=== PATIENT | male | born 1945 | race Caucasian/White ===

== ENCOUNTER 2017-11-04 15:03 | Emergency (ER) | payer OTHER ==
[~2017-11-04] VITALS: Ht 175.3 cm; Wt 88.5 kg
[~2017-11-04 15:03] MED LIST: CYCL10 PO; IBUP800 PO; MONT10T PO; MULVITMIND PO
[2017-11-04 16:14] LABS: BASOPHILS ABSOLUTE AUTO 0.05 K/mm3 (0.00-0.23); BASOPHILS PERCENT AUTO 1 % (0-2); EOSINOPHILS ABSOLUTE AUTO 0.31 K/mm3 (0.00-0.68); EOSINOPHILS PERCENT AUTO 5 % (0-6); Hematocrit 45.5 % (37.0-53.0); IMMATURE GRAN ABSOLUTE AUTO 0.02 K/mm3 (0.00-0.10); IMMATURE GRAN PERCENT AUTO 0 % (0-1); LYMPHOCYTES PERCENT AUTO 17 % (21-46); MONOCYTES PERCENT AUTO 9 % (4-13); Mean Corpuscular HGB 30.3 pg (26.0-34.0); Mean Corpuscular Volume 92 fL (80-100); NEUTROPHILS ABSOLUTE AUTO 4.71 K/mm3 (1.96-9.15); NEUTROPHILS PERCENT AUTO 68 % (41-73); Platelet Count 205 K/mm3 (150-400); RDW Coefficient Variation 13.3 % (11.7-14.2); RDW Standard Deviation 45.7 fL (35.1-46.3); Red Blood Cell Count 4.95 M/mm3 (4.30-5.90); White Blood Cell Count 6.89 K/mm3 (4.00-11.30)
[2017-11-04 16:15] LABS: Anion Gap 9 mmol/L (6-16); Blood Urea Nitrogen 15 mg/dL (8-24); CO2, Blood 26 mmol/L (21-32); Calcium, Blood 8.9 mg/dL (8.5-10.1); Chloride, Blood 107 mmol/L (98-108); Creatinine, Blood 0.94 mg/dL (0.60-1.20); Glomerular Filtration Rate >60 (60-); Glucose, Blood 104 mg/dL (70-99); Sodium, Blood 142 mmol/L (136-145)
[2017-11-04] MEDS ORDERED: HYDR1TAB94 PO (18:24)
[2017-11-04] MEDS ORDERED: CEPH500 PO (18:24)
== END 2017-11-04 18:39 | disposition home or self-care (01) ==
LOC: ER 15:03
PROVIDERS: Emergency Medicine
DX: S62.637B Displaced fracture of distal phalanx of left little finger, initial encounter for open fracture (principal); S62.631A Displaced fracture of distal phalanx of left index finger, initial encounter for closed fracture; S62.633A Displaced fracture of distal phalanx of left middle finger, initial encounter for closed fracture; S66.52 Laceration of intrinsic muscle, fascia and tendon of other and unspecified finger at wrist and hand level; S61.215A Laceration without foreign body of left ring finger without damage to nail, initial encounter; Z23 Encounter for immunization; W29.3XXA Contact with powered garden and outdoor hand tools and machinery, initial encounter
CPT/HCPCS: 12004; 73130; 80048; 85025; 90471; 90714; 96374; 96375; 96376; 99284; J0690; J1170; J2270; L3917

== ENCOUNTER 2017-11-07 06:38 | Day surgery (SDC) | payer OTHER ==
[~2017-11-07] VITALS: Ht 175.3 cm; Wt 92.1 kg
[~2017-11-07 06:38] MED LIST changes: +CEPH500 PO; +HYDR1TAB94 PO
[2017-11-07] MEDS ORDERED: Percocet 5-3251 EACH PO (14:37)
[2017-11-07] MEDS ORDERED: CEPH500 PO (14:37)
== END 2017-11-07 15:08 | disposition home or self-care (01) ==
LOC: SURS 06:38 → ORSCMMR 06:38 → EDSTATUS 09:00 → ORSCMMR 15:08 → SURS 15:08
PROVIDERS: Orthopaedic Surgery
PROC: 0RG Upper Joints, Fusion (ICD-10-PCS; principal; 2017-11-07 09:00)
PROC: 0LQ80ZZ Repair Left Hand Tendon, Open Approach (ICD-10-PCS; principal; 2017-11-07 09:00)
PROC: 0HQGXZZ Repair Left Hand Skin, External Approach (ICD-10-PCS; 2017-11-07 09:00)
PROC: 0HQQXZZ Repair Finger Nail, External Approach (ICD-10-PCS; 2017-11-07 09:00)
DX: S68.121A Partial traumatic metacarpophalangeal amputation of left index finger, initial encounter (principal); S66.325A Laceration of extensor muscle, fascia and tendon of left ring finger at wrist and hand level, initial encounter; S61.313A Laceration without foreign body of left middle finger with damage to nail, initial encounter; S61.315A Laceration without foreign body of left ring finger with damage to nail, initial encounter; G89.29 Other chronic pain; M54.9 Dorsalgia, unspecified; Z98.890 Other specified postprocedural states; Z98.1 Arthrodesis status; Z87.891 Personal history of nicotine dependence; X58.XXXA Exposure to other specified factors, initial encounter; W27.0XXA Contact with workbench tool, initial encounter
CPT/HCPCS: G0378; J0690; J1100; J1885; J2405; J3010; J7120

== ENCOUNTER 2019-06-28 12:23 | Day surgery (SDC) | payer OTHER ==
[~2019-06-28] VITALS: Ht 175.3 cm; Wt 86.6 kg
[~2019-06-28 12:23] MED LIST changes: +Aspir 8181 MG PO; +Percocet 5-3251 EACH PO
[2019-06-28] MEDS ORDERED: IBUP400 (12:42)
[2019-06-28] MEDS ORDERED: NAPR220 (12:42)
--- NOTE | 2019-06-28 12:56 | NUR ---
06/28/19 1256 Kamron Guido PT REFUSED LIDOCAINE FOR IV START-CMT
== END 2019-06-28 14:30 | disposition home or self-care (01) ==
LOC: ORSCSDS 12:23
PROVIDERS: Surgery
PROC: 0DB78ZX Excision of Stomach, Pylorus, Via Natural or Artificial Opening Endoscopic, Diagnostic (ICD-10-PCS; principal; 2019-06-28 13:30)
PROC: 0DBN8ZX Excision of Sigmoid Colon, Via Natural or Artificial Opening Endoscopic, Diagnostic (ICD-10-PCS; principal; 2019-06-28 13:30)
PROC: 0DB48ZX Excision of Esophagogastric Junction, Via Natural or Artificial Opening Endoscopic, Diagnostic (ICD-10-PCS; principal; 2019-06-28 13:30)
PROC: 0DBL8ZX Excision of Transverse Colon, Via Natural or Artificial Opening Endoscopic, Diagnostic (ICD-10-PCS; principal; 2019-06-28 13:30)
DX: Z12.11 Encounter for screening for malignant neoplasm of colon (principal); D12.3 Benign neoplasm of transverse colon; K63.5 Polyp of colon; R10.13 Epigastric pain; K22.70 Barrett's esophagus without dysplasia; K57.30 Diverticulosis of large intestine without perforation or abscess without bleeding; K21.9 Gastro-esophageal reflux disease without esophagitis; Z87.891 Personal history of nicotine dependence
CPT/HCPCS: 88305; 88342; J2704; J7120